=== PATIENT | female | born 1995 | race Caucasian/White ===

== ENCOUNTER 2020-11-07 14:35 | Observation (INO) | payer OTHER ==
[~2020-11-07] VITALS: Ht 160 cm; Wt 77.1 kg
[2020-11-07 18:20] LABS: RED BLOOD COUNT 3.42 M/UL (4.00-5.10); WHITE BLOOD COUNT 9.2 K/UL (4.5-11.0)
== END 2020-11-08 10:00 | disposition home or self-care (01) ==
LOC: GENOP 14:35 → OB 18:25
PROVIDERS: Obstetrics & Gynecology; ADMIT Obstetrics & Gynecology
DX: O23.03 Infections of kidney in pregnancy, third trimester (principal); N12 Tubulo-interstitial nephritis, not specified as acute or chronic; Z3A.29 29 weeks gestation of pregnancy; O99.353 Diseases of the nervous system complicating pregnancy, third trimester; O99.343 Other mental disorders complicating pregnancy, third trimester; G43.909 Migraine, unspecified, not intractable, without status migrainosus; F41.9 Anxiety disorder, unspecified; F32.9 Major depressive disorder, single episode, unspecified; Z87.891 Personal history of nicotine dependence; O99.283 Endocrine, nutritional and metabolic diseases complicating pregnancy, third trimester; E04.1 Nontoxic single thyroid nodule; Z20.822 Contact with and (suspected) exposure to COVID-19
CPT/HCPCS: 36415; 81001; 82731; 85025; 96365; 96366; 96367; 96374; 96376; G0378; J0696; J2405; J7120; U0002

== ENCOUNTER 2021-01-18 16:55 | Inpatient (IN) | payer OTHER ==
[~2021-01-18] VITALS: Ht 160 cm; Wt 83.0 kg
[2021-01-18 18:02] LABS: RED BLOOD COUNT 3.6 M/UL (4.00-5.10); WHITE BLOOD COUNT 8.8 K/UL (4.5-11.0)
[2021-01-18] MEDS ORDERED: ZOLOFT25 MG PO (18:39)
[2021-01-18] MEDS ORDERED: ZYRTEC10 M3 PO (18:40)
[2021-01-18] MEDS ORDERED: COLACE100 MG PO (18:40)
[2021-01-18] MEDS ORDERED: MACROBID 100 M100 MG PO (18:40)
[2021-01-18] MEDS ORDERED: PRENATAL VITAM1 EAC3 PO (18:41)
[2021-01-20 05:10] LABS: HEMOGLOBIN 10.6 gm/dl (12.3-15.3)
[2021-01-20] MEDS ORDERED: HYDROCODON-ACE1 EAC4 PO (14:49)
[2021-01-20] MEDS ORDERED: IBUPROFEN600 MG PO (14:49)
== END 2021-01-20 18:14 | disposition home or self-care (01) | DRG 806 ==
LOC: GENOP 16:55 → OB 17:23
PROVIDERS: ADMIT Obstetrics & Gynecology
PROC: 10E0XZZ Delivery of Products of Conception, External Approach (ICD-10-PCS; principal; 2021-01-19)
PROC: 10907ZC Drainage of Amniotic Fluid, Therapeutic from Products of Conception, Via Natural or Artificial Opening (ICD-10-PCS; 2021-01-19)
PROC: 0HQ9XZZ Repair Perineum Skin, External Approach (ICD-10-PCS; 2021-01-19)
DX: O99.344 Other mental disorders complicating childbirth (principal); O99.354 Diseases of the nervous system complicating childbirth; Z37.0 Single live birth; F32.9 Major depressive disorder, single episode, unspecified; Z20.822 Contact with and (suspected) exposure to COVID-19; F41.9 Anxiety disorder, unspecified; G43.909 Migraine, unspecified, not intractable, without status migrainosus; Z3A.39 39 weeks gestation of pregnancy; O70.0 First degree perineal laceration during delivery
CPT/HCPCS: 36415; 51702; 81001; 82800; 85014; 85018; 85025; 90471; 90686; 90715; G0008; J2590; J7120